=== PATIENT | female | born 1990 | race African-American/Black ===

== ENCOUNTER 2021-06-26 11:11 | Emergency (ER) | payer MEDICARE, MEDICAID, SELFPAY ==
[2021-06-26 11:15] VITALS: BP 152/99; PULSE 101; RESP 18; TEMP 37.1; O2SAT 95
[2021-06-26 11:25] VITALS: BP 150/99; PULSE 98; RESP 24; O2SAT 98
--- NOTE | 2021-06-26 11:38 | ED.ALLEREA ---
HPI - Allergic Reaction General Chief complaint: Allergic Reaction Stated complaint: allergic reaction Time Seen by Provider: 06/26/21 11:18 Source: patient History of Present Illness HPI narrative: Patient presents with concern for allergic reaction. She reports she has had difficulties with allergic reaction for approximately 1 month she has had intermittent urticaria diffuse itching. She has an appointment with an spray mixer in a couple months she has been seen by her primary care doctor and has had intermittent steroids takes daily Benadryl and Zyrtec. Today her symptoms were worse as she noted lip swelling and difficulty swallowing which is new for her so she came to the ER for evaluation denies any nausea vomiting or diarrhea she denies any lightheadedness or wheezing. He has not noted any changes to her chronic medications for past couple years her antihistamine have been consistent over the past month. Typically count is on last night but has tolerated this medication in the past. She is unable to identify clear triggering substance for her allergic reaction. Patient denied family history of the same Related Data Allergies Allergy/AdvReac Type Severity Reaction Status Date / Time tramadol AdvReac Hives Verified 06/26/21 11:26 Review of Systems Review of Systems: CONSTITUTIONAL: Denies fever, chills, or sweats. EYES: Denies visual changes, redness, or discharge. ENT: Denies rhinorrhea, congestion, or otalgia. CARDIOVASCULAR: Denies chest pain, palpitations, or edema. RESPIRATORY: Denies dyspnea. GASTROINTESTINAL: Denies abdominal pain, nausea, vomiting, or diarrhea. GENITOURINARY: Denies dysuria or hematuria. SKIN: Denies rash or itching. MUSCULOSKELETAL: Denies back pain, joint pain, or myalgia. NEUROLOGIC: Denies headache, numbness, dizziness, or weakness. PSYCHIATRIC: Denies anxiety or depression. All systems reviewed & are unremarkable except as noted in HPI and below PMFSH Past Medical History Medical History (Updated 06/26/21 @ 12:53 by Paulo Muñoz MD) Anxiety Exam Narrative: GENERAL: Well-appearing, well-nourished, and in no acute distress. HEAD: Normocephalic, atraumatic. EYES: PERRLA and EOMI. ENT: Nares clear, no rhinorrhea or epistaxis. Mucous membranes moist. Mild swelling of the lips no edema in the posterior pharynx NECK: Supple. No masses. No JVD CHEST: Clear to auscultation. No respiratory distress. No wheezes rales or rhonchi HEART: Regular rate and rhythm. No murmur heard. Normal peripheral pulses. ABDOMEN: Soft, nontender, nondistended, normal active bowel sounds. EXTREMITIES: Normal range of motion. No edema. SKIN: Warm, dry, no rash. NEURO: No focal deficits. Alert and oriented x3. PSYCH: Normal mood and affect. Course Reevaluation(s) Reevaluation #1: Patient was feeling much improved she feels like she can manage her symptoms at home now. Date: 06/26/21 Time: 12:48 Vital Signs Vital signs: Vital Signs Temperature 37.1 C 06/26/21 11:15 Pulse Rate 101 H 06/26/21 11:15 Respiratory Rate 18 06/26/21 11:15 Blood Pressure 152/99 H 06/26/21 11:15 Pulse Oximetry 95 06/26/21 11:15 Temperature 37.1 C 06/26/21 11:15 Pulse Rate 88 06/26/21 13:15 Respiratory Rate 14 06/26/21 13:15 Blood Pressure 128/78 06/26/21 13:15 Pulse Oximetry 99 06/26/21 13:15 MDM - Allergic Reaction MDM Narrative Medical decision making narrative: H&P as above, vss, pt looks clinically well, exam with clear lungs, labs/img considered, symptomatic relief available as needed, on reevaluation pt continues to looks clinically well. Suspect allergic reaction unclear cause, dns airway compromise, severe sepsis, pneumonia. plan to tx/monitor as op w/ pcm f/u findings/plan discussed with pt, pt agree/comfortable with plan, return precautions given Discharge Plan Discharge Clinical Impression: Allergic reaction Qualifiers: Encounter type: initial encounter Qualified Code(s): T78.
[2021-06-26] MEDS: EPINEPHrine HCL INJ 1 MG/ML AMPUL 0.3 MG IM (11:41)
[2021-06-26] MEDS: diphenhydrAMINE HCl INJ 50 MG/ML VIAL 25 MG IV PUSH (11:46)
[2021-06-26] MEDS: methylPREDNISolone SOD SUCC 125 MG VIAL IV PUSH (11:46)
[2021-06-26 12:51] VITALS: BP 129/79; PULSE 81; RESP 16; O2SAT 99
[2021-06-26 13:15] VITALS: BP 128/78; PULSE 88; RESP 14; O2SAT 99
== END 2021-06-26 13:16 | disposition home or self-care (01) ==
PROVIDERS: Emergency Provider Emergency Medicine
DX: T78.40XA Allergy, unspecified, initial encounter (principal)
CPT/HCPCS: 96372; 96374; 96375; 99284; J0171; J1200; J2930

== ENCOUNTER 2021-07-04 19:06 | Emergency (ER) | payer MEDICARE, MEDICAID, SELFPAY ==
[2021-07-04 19:11] VITALS: BP 153/102; PULSE 88; RESP 21; TEMP 36.8; O2SAT 98
--- NOTE | 2021-07-04 19:16 | ED.ALLEREA ---
HPI - Allergic Reaction General Chief complaint: Allergic Reaction Stated complaint: allergic reaction, lip swelling Time Seen by Provider: 07/04/21 19:14 History of Present Illness HPI narrative: 31-year-old female presents the emergency room for evaluation of a cute onset of upper lip swelling. Patient states that she used her EpiPen when she noticed her lip swelling. States EpiPen did not alleviate her symptoms. Patient denies shortness of breath, difficulty breathing. Related Data Allergies Allergy/AdvReac Type Severity Reaction Status Date / Time tramadol AdvReac Hives Verified 07/04/21 19:18 Review of Systems Review of Systems: CONSTITUTIONAL: Denies fever, chills, or sweats. EYES: Denies visual changes, redness, or discharge. ENT: Denies rhinorrhea, congestion, sore throat, or otalgia. CARDIOVASCULAR: Denies chest pain, palpitations, or edema. RESPIRATORY: Denies cough or dyspnea. GASTROINTESTINAL: Denies abdominal pain, nausea, vomiting, or diarrhea. GENITOURINARY: Denies dysuria or hematuria. SKIN: Upper lip swelling, urticaria to neck and back MUSCULOSKELETAL: Denies back pain, joint pain, or myalgia. NEUROLOGIC: Denies headache, numbness, dizziness, or weakness. PSYCHIATRIC: Denies anxiety or depression. [facility] Past Medical History Medical History Anxiety Exam Narrative: GENERAL: Well-appearing, well-nourished, and in no acute distress. HEAD: Normocephalic, atraumatic. EYES: PERRLA and EOMI. CHEST: Clear to auscultation. No respiratory distress. No wheezes rales or rhonchi HEART: Regular rate and rhythm. No murmur heard. Normal peripheral pulses. ABDOMEN: Soft, nontender, nondistended, normal active bowel sounds. EXTREMITIES: Normal range of motion. No edema. SKIN: Swelling to upper lip, urticaria to neck and back NEURO: No focal deficits. Alert and oriented x3. PSYCH: Normal mood and affect. Course Vital Signs Vital signs: Vital Signs Temperature 36.8 C 07/04/21 19:11 Pulse Rate 88 07/04/21 19:11 Respiratory Rate 21 H 07/04/21 19:11 Blood Pressure 153/102 H 07/04/21 19:11 Pulse Oximetry 98 07/04/21 19:11 Temperature 36.8 C 07/04/21 19:11 Pulse Rate 83 07/04/21 22:13 Respiratory Rate 14 07/04/21 22:13 Blood Pressure 160/100 H 07/04/21 22:13 Pulse Oximetry 99 07/04/21 22:13 MDM - Allergic Reaction MDM Narrative Medical decision making narrative: 31-year-old female presented the emergency room complaints of upper lip swelling, rash on her back, and mild occultly breathing. Patient states that she experienced symptoms earlier in the week, and was given a course of steroids and. Patient states that she used her EpiPen prior to arrival. Patient was given Benadryl and steroids and monitored during ER course, and states that her symptoms began to resolve. Differential Diagnosis Differential diagnosis: Likely allergic reaction Discharge Plan Discharge Clinical Impression: Allergic reaction, Urticaria Patient Disposition: Home, Self-Care Condition: Stable Instructions: Antibiotic Form, Allergies (ED), General Allergic Reaction (ED) Prescriptions: New epinephrine [EpiPen 2-Quinn] 0.3 mg/0.3 mL auto-injector 0.3 mg IM ONCE Qty: 2 RF: 0 prednisone 20 mg tablet 40 mg PO DAILY Qty: 10 RF: 0 No Action methylprednisolone 4 mg tablets,dose pack See Rx Instructions .ROUTE .COMPLEX Qty: 21 RF: 0 epinephrine 0.3 mg/0.3 mL auto-injector 0.3 mg IM Q5-15M PRN (Reason: anaphylaxis) Qty: 2 RF: 0 Follow-up/Referrals: PHYSICIAN NOT ON STAFF,NONSTAFF [Primary Care Provider] - Time of Disposition: 22:03
[2021-07-04 19:20] VITALS: O2SAT 99
[2021-07-04] MEDS: SODIUM CHLORIDE 0.9% IV 1,000 ML 999 ML IV CONT (19:38)
[2021-07-04] MEDS: methylPREDNISolone SOD SUCC 125 MG VIAL IV PUSH (19:39)
[2021-07-04] MEDS: FAMOTIDINE 20 MG/2 ML VIAL IV PUSH (19:49)
[2021-07-04] MEDS: diphenhydrAMINE HCl INJ 50 MG/ML VIAL IV PUSH (19:52)
[2021-07-04 22:13] VITALS: BP 160/100; PULSE 83; RESP 14; O2SAT 99
== END 2021-07-04 22:15 | disposition home or self-care (01) ==
PROVIDERS: Emergency Provider Nurse Practitioner Family
DX: L50.0 Allergic urticaria (principal)
CPT/HCPCS: 96361; 96374; 96375; 99284; J1200; J2930; J7030

== ENCOUNTER 2021-07-10 23:37 | Emergency (ER) | payer MEDICARE, MEDICAID, SELFPAY ==
[2021-07-10 23:40] VITALS: BP 109/93; PULSE 103; RESP 25; TEMP 36.3; O2SAT 100
[2021-07-10 23:47] VITALS: PULSE 87; RESP 17; O2SAT 100
--- NOTE | 2021-07-10 23:47 | ED.ALLEREA ---
HPI - Allergic Reaction General Chief complaint: Allergic Reaction Stated complaint: allergic reaction Time Seen by Provider: 07/10/21 23:41 History of Present Illness HPI narrative: 31-year-old female presents the emergency room for evaluation of allergic reaction. Patient has been seen in the emergency room several times before recently for similar symptoms. Patient states she has not taking any new medications, new detergents no known environmental exposures. Patient has an appointment to see the client delivery manager later this week. Patient was also told to discontinue the prednisone that she was taking. Patient denies any shortness of breath or difficulty. Reports swelling of her lower lip and hives on her arm and face. Related Data Allergies Allergy/AdvReac Type Severity Reaction Status Date / Time shellfish derived Allergy Swelling Verified 07/10/21 23:46 of Lip/Tongue/Throat tramadol AdvReac Hives Verified 07/10/21 23:45 Review of Systems Review of Systems: CONSTITUTIONAL: Denies fever, chills, or sweats. EYES: Denies visual changes, redness, or discharge. ENT: Lower lip swelling CARDIOVASCULAR: Denies chest pain, palpitations, or edema. RESPIRATORY: Denies cough or dyspnea. GASTROINTESTINAL: Denies abdominal pain, nausea, vomiting, or diarrhea. GENITOURINARY: Denies dysuria or hematuria. SKIN: Reports rash on the arm and face MUSCULOSKELETAL: Denies back pain, joint pain, or myalgia. NEUROLOGIC: Denies headache, numbness, dizziness, or weakness. PSYCHIATRIC: Denies anxiety or depression. PMFSH Past Medical History Medical History Anxiety Exam Narrative: GENERAL: Well-appearing, well-nourished, and in no acute distress. HEAD: Normocephalic, atraumatic. Lower lip swelling EYES: PERRLA and EOMI. CHEST: Clear to auscultation. No respiratory distress. No wheezes rales or rhonchi HEART: Regular rate and rhythm. No murmur heard. Normal peripheral pulses. ABDOMEN: Soft, nontender, nondistended, normal active bowel sounds. EXTREMITIES: Normal range of motion. No edema. SKIN: Urticaria to left arm face and back NEURO: No focal deficits. Alert and oriented x3. PSYCH: Normal mood and affect. Course Vital Signs Vital signs: Vital Signs Temperature 36.3 C L 07/10/21 23:40 Pulse Rate 103 H 07/10/21 23:40 Respiratory Rate 25 H 07/10/21 23:40 Blood Pressure 109/93 H 07/10/21 23:40 Pulse Oximetry 100 07/10/21 23:40 Temperature 36.3 C L 07/10/21 23:40 Pulse Rate 83 07/11/21 00:34 Respiratory Rate 25 H 07/11/21 00:34 Blood Pressure 150/99 H 07/11/21 00:34 Pulse Oximetry 99 07/11/21 00:34 MDM - Allergic Reaction MDM Narrative Medical decision making narrative: 31-year-old female presented the emergency room for evaluation of a allergic reaction to an unknown substance. This is her third visit to the emergency room in 2 weeks. Patient has a follow-up with her client delivery manager later this week. Patient initially was complaining of lower lip swelling and urticaria. Patient was given Solu-Medrol and Benadryl in the emergency room, and patient states her symptoms are resolving. Discharge Plan Discharge Clinical Impression: Urticaria Allergic reaction Qualifiers: Encounter type: initial encounter Qualified Code(s): T78.40XA - Allergy, unspecified, initial encounter Patient Disposition: Home, Self-Care Condition: Stable Instructions: Antibiotic Form Additional Instructions: Follow-up with your client delivery manager tomorrow. Prescriptions: No Action methylprednisolone 4 mg tablets,dose pack See Rx Instructions .ROUTE .COMPLEX Qty: 21 RF: 0 epinephrine 0.3 mg/0.3 mL auto-injector 0.3 mg IM Q5-15M PRN (Reason: anaphylaxis) Qty: 2 RF: 0 epinephrine [EpiPen 2-Quinn] 0.3 mg/0.3 mL auto-injector 0.3 mg IM ONCE Qty: 2 RF: 0 prednisone 20 mg tablet 40 mg PO DAILY Qty: 10 RF: 0 Follow-up/Referrals: PHYSICIAN,ON
[2021-07-10] MEDS: methylPREDNISolone SOD SUCC 125 MG VIAL IV PUSH (23:51)
[2021-07-10] MEDS: FAMOTIDINE 20 MG/2 ML VIAL IV PUSH (23:51)
[2021-07-10] MEDS: diphenhydrAMINE HCl INJ 50 MG/ML VIAL 25 MG IV PUSH (23:51)
[2021-07-10] MEDS: SODIUM CHLORIDE 0.9% IV 1,000 ML 999 ML IV CONT (23:51)
[2021-07-11] VITALS: PULSE 82; RESP 22; O2SAT 100
[2021-07-11 00:33] VITALS: PULSE 82; RESP 22; O2SAT 99
[2021-07-11 00:34] VITALS: BP 150/99; PULSE 83; RESP 25; O2SAT 99
--- NOTE | 2021-07-11 00:35 | PC.NURSE ---
Patient states she is no longer itchy and her pain is gone. Patient still has lower lip swelling.
[2021-07-11 01:38] VITALS: BP 140/96; PULSE 82; RESP 21; O2SAT 100
== END 2021-07-11 01:40 | disposition home or self-care (01) ==
PROVIDERS: Emergency Provider Nurse Practitioner Family
DX: L50.0 Allergic urticaria (principal); T78.40XA Allergy, unspecified, initial encounter
CPT/HCPCS: 96361; 96374; 96375; 99284; J1200; J2930; J7030

== ENCOUNTER 2021-09-15 15:47 | Emergency (ER) | payer MEDICARE, MEDICAID, SELFPAY ==
--- NOTE | ~2021-09-15 | US_ITS ---
EXAMINATION: US OB <=14 wk fetus w TV DATE: 09/15/2021 17:15 INDICATION: Left lower quadrant pain during first trimester TECHNIQUE: Real-time pelvic transabdominal and transvaginal ultrasound was performed. COMPARISON: None. FINDINGS: The uterus measures 7.3 x 4.6 x 5.5 cm. There is an intrauterine fluid collection. No feta l pole or yolk sac are identified. The intrauterine fluid collection measures 6 mm , which correlates with an estimated gestational age of 5 weeks and 2 day(s) (+/-) 3 day(s). The right ovary measures 2.5 x 2.2 x 2.1 cm. The left ovary measures 2.7 x 1.8 x 2.9 cm. There is nor mal vascular flow in the ovaries. There is no free fluid in the pelvis. IMPRESSION: 1. Probable intrauterine gestational sac with an estimated gestational age of 5 weeks and 2 day(s) (+ /-) 3 day(s) and an estimated delivery date of 05/16/2022 based on mean sac diameter. Reviewed, dictated and finalized at location F. IMPRESSION: 1. Probable intrauterine gestational sac with an estimated gestational age of 5 weeks and 2 day(s) (+/-) 3 day(s) and an estimated delivery date of 05/16/2022 based on mean sac diameter.
[2021-09-15 15:50] VITALS: BP 129/79; PULSE 102; RESP 20; TEMP 36.6; O2SAT 98
[2021-09-15 17:17] LABS: Basophils Absolute Auto 0.1 K/mm3 (0.0-0.1); Basophils Percent Auto 0.7 % (0.2-1.2); Eosinophils Absolute Auto 0.4 K/mm3 (0-0.3); Eosinophils Percent Auto 4.2 % (0-4.4); Hematocrit 37.1 % (37.0-47.0); Hemoglobin 11.9 g/dL (12.0-15.0); Immature Granulocyte Absolute 0.06 K/mm3 (0.00-0.031); Immature Granulocyte Percent A 0.7 % (0-0.5); Lymphocytes Absolute Auto 2.62 K/mm3 (0.9-3.2); Lymphocytes Percent Auto 28.9 % (18.3-44.2); Mean Corpuscular HGB Conc 32.1 g/dl (32-36); Mean Corpuscular Hemoglobin 29.5 pg (26-34); Mean Corpuscular Volume 92.1 fl (80-100); Mean Platelet Volume 10.1 fl (7.4-10.4); Monocytes Absolute Auto 0.7 K/mm3 (0.1-0.6); Monocytes Percent Auto 7.9 % (2.6-8.5); Neutrophils Absolute Auto 5.2 K/mm3 (1.3-6.7); Neutrophils Percent Auto 57.6 % (45.5-73.1); Platelet Count Result 292 k/mm3 (150-375); Red Blood Count 4.03 M/mm3 (4.2-5.4); Red Cell Distribution Width 13.6 % (11.5-14.5); White Blood Count 9.1 K/mm3 (4.5-10.0)
[2021-09-15] MEDS: LACTATED RINGERS 1,000 ML 999 ML IV CONT (17:17)
[2021-09-15 17:20] VITALS: BP 126/80; PULSE 88; RESP 16; TEMP 36.4; O2SAT 100
[2021-09-15 17:26] LABS: Alanine Aminotransferase 25 U/L (6-35); Albumin Level 4.3 g/dL (3.5-5.1); Alkaline Phosphatase 65 U/L (38-126); Anion Gap 7 mmol/L (8-16); Aspartate Amino Transferase 27 U/L (14-36); Bilirubin,Total < 0.1 mg/dL (0.2-1.3); Blood Urea Nitrogen 11 mg/dL (7-17); Calcium 8.8 mg/dL (8.4-10.2); Carbon Dioxide 26 mmol/L (22-30); Chloride 104 mmol/L (98-107); Estimated Glomerular Filt Rate > 60; Glucose 87 mg/dL (65-110); Potassium 3.7 mmol/L (3.4-5.0); Sodium 137 mmol/L (137-145)
--- NOTE | 2021-09-15 17:53 | ED.FEMALEGU ---
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 Time Seen by Provider: 09/15/21 16:31 Source: patient History of Present Illness HPI Narrative: Patient presents with abdominal pain vaginal bleeding and concern for . Patient reports she had her last menstrual cycle July 23 at home test was positive follow-up with her primary care doctor and it was also positive. She is coming in today because she had approximately 1 week of left-sided abdominal pain. Her pain is primarily left lower quadrant described as crampy radiates to her lower back on the left side worse with walking around. Her symptoms have been associated with vaginal spotting she denies passage of clots. She is monitor symptoms at home it was not getting better so she came to the ER for further evaluation. Denies any lightheadedness or dizziness denies any urinary symptoms she states her blood type is A- Related Data Allergies Allergy/AdvReac Type Severity Reaction Status Date / Time shellfish derived Allergy Swelling Verified 07/10/21 23:46 of Lip/Tongue/Throat tramadol AdvReac Hives Verified 07/10/21 23:45 Review of Systems Review of Systems: CONSTITUTIONAL: Denies fever, chills, or sweats. EYES: Denies visual changes, redness, or discharge. ENT: Denies rhinorrhea, congestion, sore throat, or otalgia. CARDIOVASCULAR: Denies chest pain, palpitations, or edema. RESPIRATORY: Denies cough or dyspnea. GASTROINTESTINAL: Denies nausea, vomiting, or diarrhea. GENITOURINARY: Denies dysuria or hematuria. SKIN: Denies rash or itching. MUSCULOSKELETAL: Denies back pain, joint pain, or myalgia. NEUROLOGIC: Denies headache, numbness, dizziness, or weakness. PSYCHIATRIC: Denies anxiety or depression. All systems reviewed & are unremarkable except as noted in HPI and below PMFSH Past Medical History Medical History Anxiety Social History Social History (Updated 09/15/21 @ 17:55 by Paulo Muñoz MD) Living arrangements: with family Exam Narrative: GENERAL: Well-appearing, well-nourished, and in no acute distress. HEAD: Normocephalic, atraumatic. EYES: PERRLA and EOMI. ENT: Nares clear, no rhinorrhea or epistaxis. Mucous membranes moist. NECK: Supple. No masses. No JVD CHEST: Clear to auscultation. No respiratory distress. No wheezes rales or rhonchi HEART: Regular rate and rhythm. No murmur heard. Normal peripheral pulses. 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 There is scant vaginal bleeding cervical os was closed this given discharge no external ulcerations or lesions no lymphadenopathy EXTREMITIES: Normal range of motion. No edema. SKIN: Warm, dry, no rash. NEURO: No focal deficits. Alert and oriented x3. PSYCH: Normal mood and affect. Course Reevaluation(s) Reevaluation #1: Patient resting comfortably results and plan reviewed with patient. Patient is comfortable outpatient plan. Date: 09/15/21 Time: 17:57 Vital Signs Vital signs: Vital Signs Temperature 36.6 C 09/15/21 15:50 Pulse Rate 102 H 09/15/21 15:50 Respiratory Rate 20 09/15/21 15:50 Blood Pressure 129/79 09/15/21 15:50 Pulse Oximetry 98 09/15/21 15:50 Oxygen Delivery Room Air 09/15/21 15:50 Temperature 36.7 C 09/15/21 18:25 Pulse Rate 82 09/15/21 18:25 Respiratory Rate 18 09/15/21 18:25 Blood Pressure 126/70 09/15/21 18:25 Pulse Oximetry 98 09/15/21 18:25 Oxygen Delivery Room Air 09/15/21 15:50 MDM - Female Genitourinary MDM Narrative Medical decision making narrative: H&P as above, vss, pt looks clinically well, exam left lower quadrant abdominal pain scant vaginal bleeding on exam, labs with elevated hCG patient's Rh status negative RhoGAM given img with viable IUP, additional labs/img considered, symptomatic re
[2021-09-15 18:01] LABS: Appearance Urine Clear (Clear); Bilirubin Urine Negative (Negative); Blood Urine Trace-lysed (Negative); Glucose Urine UA Negative (Negative); Ketones Urine Negative (Negative); Leukocyte Esterase Ur 1+ LEU/UL (Negative); Nitrate Urine Negative (Negative); Protein Urine Negative (Negative); Specific Grav Ur <= 1.005 (1.001-1.035); Urobilinogen Urine 0.2 mg/dL (<2.0); pH Urine 6.5 (5.0-9.0)
[2021-09-15 18:08] LABS: Bacteria Urine Trace /hpf; RBC Urine 0-2 /hpf (0-2)
[2021-09-15 18:09] LABS: Add Urine Microscopic? YES; Color Urine Light Yellow (Yellow)
[2021-09-15] MEDS: RHO(D) IMMUNE GLOBULIN 300 MCG/2 ML SYRINGE IM (18:20)
[2021-09-15 18:25] VITALS: BP 126/70; PULSE 82; RESP 18; TEMP 36.7; O2SAT 98
== END 2021-09-15 18:26 | disposition home or self-care (01) ==
PROVIDERS: Emergency Provider Emergency Medicine
DX: O20.0 Threatened abortion (principal); Z3A.01 Less than 8 weeks gestation of pregnancy
CPT/HCPCS: 36415; 76801; 76817; 80053; 81001; 84702; 85025; 85461; 87070; 87491; 87591; 87808; 90384; 96360; 96372; 99284; J2790; J7120

== ENCOUNTER 2021-09-18 09:31 | Emergency (ER) | payer MEDICARE, MEDICAID, SELFPAY ==
[2021-09-18 09:33] VITALS: BP 147/87; PULSE 104; RESP 16; TEMP 36.6; O2SAT 100
--- NOTE | 2021-09-18 09:58 | ED.FEMALEGU ---
HPI - Female Genitourinary General Chief complaint: Vaginal Bleeding Stated complaint: VAG BLEED 5WK PREG Time Seen by Provider: 09/18/21 09:41 History of Present Illness HPI Narrative: Patient is a 31-year-old female who is currently about 5 weeks here for evaluation of vaginal bleeding for the past 5 days. Patient states the bleeding started out as a spotting, and now has progressed to small blood clots. Additionally reporting some crampy abdominal pain, nausea and low back pain that is intermittent, unrelieved by Tylenol. She was seen here for the same 2 days ago, had an ultrasound that showed IUP, was given OB follow-up but patient states that her appointment is not till the end of September. Was also given RhoGAM as she is A-. No fevers, chills, vomiting, diarrhea, constipation. Related Data Home Medications Medication Instructions Recorded Confirmed famotidine 20 mg tablet tablet 09/18/21 09/18/21 fluoxetine 20 mg capsule cap 09/18/21 Allergies Allergy/AdvReac Type Severity Reaction Status Date / Time nut - unspecified Allergy Swelling Verified 09/18/21 09:43 of Lip/Tongue/Throat shellfish derived Allergy Swelling Verified 09/18/21 09:43 of Lip/Tongue/Throat tramadol AdvReac Hives Verified 09/18/21 09:43 Review of Systems Review of Systems: Gen.: Denies fevers or chills Eyes: Denies eye pain or visual change ENT: Denies congestion Respiratory: Denies shortness of breath or cough CV: Denies chest pain or palpitations GI: Reports abdominal cramping and nausea. Denies abdominal pain, emesis or diarrhea : Reports vaginal bleeding. Denies burning, urgency, frequency or hematuria Musculoskeletal: Denies back pain or muscle pain Neuro: Denies numbness, tingling, weakness or focal weakness Skin: Denies rash Except as documented, all other systems reviewed and negative [facility] Past Medical History Medical History Anxiety Exam Narrative: APPEARANCE: No acute distress, nontoxic, resting in bed EYES: EOMI HEENT: Normocephalic, atraumatic, OMM RESPIRATORY: No respiratory distress Clear to auscultation bilaterally with no rhonchi wheezing or rales. CARDIOVASCULAR: Regular rate and rhythm without murmurs rubs or gallops. ABDOMINAL: Soft, nontender, nondistended, no rebound or guarding MUSCULOSKELETAl: Moves all extremities. No clubbing, cyanosis or edema. 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 Scant amount of dark red blood noted in vaginal vault, no clots. Thick vaginal rugae obscure view of cervix NEURO: Awake and alert. Following commands, speech normal, no focal deficits SKIN: Warm, dry. No rashes lesions or abrasions PSYCHIATRIC: Normal affect/mood, Course Vital Signs Vital signs: Vital Signs Temperature 97.9 F 09/18/21 09:33 Pulse Rate 104 H 09/18/21 09:33 Respiratory Rate 16 09/18/21 09:33 Blood Pressure 147/87 H 09/18/21 09:33 Pulse Oximetry 100 09/18/21 09:33 Oxygen Delivery Room Air 09/18/21 09:33 Temperature 97.9 F 09/18/21 09:33 Pulse Rate 88 09/18/21 12:58 Respiratory Rate 14 09/18/21 12:58 Blood Pressure 132/86 09/18/21 12:58 Pulse Oximetry 97 09/18/21 12:58 Oxygen Delivery Room Air 09/18/21 09:33 MDM - Female Genitourinary MDM Narrative Medical decision making narrative: 31-year-old female who is currently about 5 weeks here for evaluation of vaginal bleeding and abdominal cramping. Patient had dose of RhoGAM and an ultrasound showing IUP 2 days prior in the ED. Her quant has decreased since that time. Vaginal rugae obscuring view of cervical os, although there is no active bleeding and no clots visualized. Hemoglobin and hematocrit stable. Likely miscarriage; doubt ectopic given previously visualized IUP, doubt septic AB given normal white count and normal vital signs. Spoke with Dr. Richardson, BATTERY PARTS ASSEMBLER on-call, who will follow in office with
[2021-09-18 10:24] LABS: Basophils Percent Auto 0.5 % (0.2-1.2); Eosinophils Absolute Auto 0.3 K/mm3 (0-0.3); Eosinophils Percent Auto 4.2 % (0-4.4); Hematocrit 34.8 % (37.0-47.0); Hemoglobin 11.6 g/dL (12.0-15.0); Immature Granulocyte Absolute 0.03 K/mm3 (0.00-0.031); Immature Granulocyte Percent A 0.5 % (0-0.5); Lymphocytes Absolute Auto 1.84 K/mm3 (0.9-3.2); Lymphocytes Percent Auto 27.8 % (18.3-44.2); Mean Corpuscular HGB Conc 33.3 g/dl (32-36); Mean Corpuscular Volume 89.9 fl (80-100); Mean Platelet Volume 10.8 fl (7.4-10.4); Monocytes Absolute Auto 0.4 K/mm3 (0.1-0.6); Monocytes Percent Auto 6.3 % (2.6-8.5); Neutrophils Percent Auto 60.7 % (45.5-73.1); Platelet Count Result 290 k/mm3 (150-375); Red Blood Count 3.87 M/mm3 (4.2-5.4); Red Cell Distribution Width 13.6 % (11.5-14.5); White Blood Count 6.6 K/mm3 (4.5-10.0)
[2021-09-18] MEDS: ACETAMINOPHEN 325 MG TABLET 650 MG PO (10:24)
[2021-09-18 12:04] LABS: Appearance Urine Clear (Clear); Bilirubin Urine 1+ (Negative); Blood Urine 2+ (Negative); Color Urine Yellow (Yellow); Glucose Urine UA Negative (Negative); Ketones Urine Negative (Negative); Leukocyte Esterase Ur Trace LEU/UL (Negative); Nitrate Urine Negative (Negative); Protein Urine Negative (Negative); Urobilinogen Urine 0.2 mg/dL (<2.0)
[2021-09-18 12:07] LABS: Mucus Urine Few /lpf; Squamous Epithelial Cell Urine Occasional /hpf (Few)
[2021-09-18 12:15] LABS: Add Urine Microscopic? YES
[2021-09-18 12:58] VITALS: BP 132/86; PULSE 88; RESP 14; O2SAT 97
== END 2021-09-18 12:58 | disposition home or self-care (01) ==
PROVIDERS: Physician Assistant; Emergency Provider Emergency Medicine
DX: O20.0 Threatened abortion (principal); O99.341 Other mental disorders complicating pregnancy, first trimester; F41.9 Anxiety disorder, unspecified; Z3A.01 Less than 8 weeks gestation of pregnancy
CPT/HCPCS: 36415; 81001; 84702; 85025; 99283; A9270

== ENCOUNTER 2022-02-10 21:51 | Emergency (ER) | payer MEDICARE, MEDICAID, SELFPAY ==
--- NOTE | ~2022-02-10 | XR_ITS ---
XR chest 1V portable DATE: 02/11/2022 01:35 INDICATION: Cough, wheezing TECHNIQUE: Portable upright AP chest on 02/11/2022 at 0132 hours COMPARISON: None FINDINGS: Normal heart size. No hilar or mediastinal enlargement. No pulmonary infiltrate or consolid ation, pleural effusion or pulmonary vascular congestion or pneumothorax. Included skeletal structures are unremarkable. IMPRESSION: No active cardiopulmonary disease Reviewed, dictated and finalized at location A. FOLIO MANAGER
[2022-02-10 22:02] VITALS: BP 137/97; PULSE 92; RESP 18; TEMP 36.4; O2SAT 97
[2022-02-10 22:50] LABS: Influenza A QL RT-PCR Negative (Negative); Influenza B QL RT-PCR Negative (Negative); RSV RNA, RT-PCR Negative (Negative); SARS-CoV-2 RNA PCR Negative
--- NOTE | 2022-02-11 01:27 | ED.URI ---
HPI - URI/Sore Throat General Chief Complaint: Upper Respiratory Infection Stated Complaint: upper respiratory issue Time Seen by Provider: 02/11/22 01:10 Source: patient Mode of arrival: ambulatory Limitations: no limitations History of Present Illness HPI Narrative: This is a 31 year old female that presents to the ER for cold symptoms ongoing over the last couple of days. Reports cough, congestion, rhinorrhea. Reports similar symptoms in her child. Reports she has felt tightness and wheezing in her chest. She has history of asthma, but does not currently have an inhaler. Denies fever. Related Data Home Medications Medication Instructions Recorded Confirmed famotidine 20 mg tablet tablet 09/18/21 09/18/21 fluoxetine 20 mg capsule cap 09/18/21 Allergies Allergy/AdvReac Type Severity Reaction Status Date / Time nut - unspecified Allergy Swelling Verified 02/10/22 21:52 of Lip/Tongue/Throat shellfish derived Allergy Swelling Verified 02/10/22 21:52 of Lip/Tongue/Throat tramadol AdvReac Hives Verified 02/10/22 21:52 Review of Systems Review of Systems: CONSTITUTIONAL: Denies fever ENT: Reports rhinorrhea, congestion CARDIOVASCULAR: Reports chest pain with coughing RESPIRATORY: Reports cough and dyspnea. All systems reviewed & are unremarkable except as noted in HPI and below PMFSH Past Medical History Medical History (Updated 02/11/22 @ 02:40 by Kelly Jones PA-C) Anxiety History of asthma Social History Social History (Updated 02/11/22 @ 01:29 by Kelly Jones PA-C) Smoking status: Never smoker Exam Narrative: GENERAL: Well-appearing, well-nourished, and in no acute distress. HEAD: Normocephalic, atraumatic. EYES: EOMI. ENT: Nares clear, no rhinorrhea or epistaxis. Mucous membranes moist. Oropharynx without tonsillar hypertrophy exudate or other lesions. Bilateral TMs pearly aviles non-bulging NECK: Supple. No adenopathy or masses. CHEST: Diminished lung sounds with expiratory wheezing. No respiratory distress. No rales or rhonchi HEART: Regular rate and rhythm. No murmur heard. Normal peripheral pulses EXTREMITIES: Normal range of motion. No edema. SKIN: Warm, dry, no rash. NEURO: No focal deficits. Alert and oriented x3. PSYCH: Normal mood and affect Course Vital Signs Vital signs: Vital Signs Temperature 97.5 F L 02/10/22 22:02 Pulse Rate 92 02/10/22 22:02 Respiratory Rate 18 02/10/22 22:02 Blood Pressure 137/97 H 02/10/22 22:02 Pulse Oximetry 97 02/10/22 22:02 Oxygen Delivery Room Air 02/10/22 22:02 Temperature 97.5 F L 02/10/22 22:02 Pulse Rate 92 02/10/22 22:02 Respiratory Rate 18 02/10/22 22:02 Blood Pressure 137/97 H 02/10/22 22:02 Pulse Oximetry 97 02/10/22 22:02 Oxygen Delivery Room Air 02/10/22 22:02 MDM - URI/Sore Throat MDM Narrative Medical decision making narrative: Patient presents to the ER for cold symptoms present over the last couple of days. Associated with asthma exacerbation. Patient with diminished lung sounds and expiratory wheezing on arrival. This improved with nebulizer treatment. Patient reports relief. Chest x-ray without acute cardiopulmonary abnormality. Oxygen saturation has remained normal on room air. She will be continued on oral steroid and given prescription for albuterol inhaler. She was given warnings to return to the ER Lab Data Attestation: I reviewed the patient's lab results. Labs: Lab Results 02/10/22 Range/Units 22:08 Influenza A (RT-PCR) Negative (Negative) Influenza B (RT-PCR) Negative (Negative) RSV (RT-PCR) Negative (Negative) SARS-CoV-2 RNA (RT-PCR) Negative Critical Care Time Critical Care Time Critical Care Time: No Discharge Plan Discharge Clinical Impression: Acute viral syndrome Asthma exacerbation Qualifiers: Asthma severity: unspecified severity Asthma persistence: intermittent Qualified Code(s): J45.21 - Mild inter
[2022-02-11] MEDS: predniSONE 20 MG TABLET 40 MG PO (01:32)
[2022-02-11] MEDS: ALBUTEROL SULFATE NEB 2.5 MG/3 ML INH 5 MG INHALATION (01:55)
[2022-02-11] MEDS: IPRATROPIUM BR 0.02% INH SOLN 0.5 MG/2.5 ML VIAL INHALATION (01:55)
== END 2022-02-11 02:50 | disposition home or self-care (01) ==
PROVIDERS: Emergency Medicine; Emergency Provider Physician Assistant
DX: B34.9 Viral infection, unspecified (principal); J45.21 Mild intermittent asthma with (acute) exacerbation; Z20.822 Contact with and (suspected) exposure to COVID-19; J45.909 Unspecified asthma, uncomplicated; F41.9 Anxiety disorder, unspecified
CPT/HCPCS: 71045; 87637; 99283; J7512

== ENCOUNTER 2022-03-10 09:28 | Emergency (ER) | payer MEDICARE, MEDICAID, SELFPAY ==
--- NOTE | 2022-03-10 09:39 | ED.URI ---
HPI - URI/Sore Throat General Chief Complaint: Upper Respiratory Infection Stated Complaint: swollen lymph node; nausea; diarrhea Source: patient and RN notes reviewed Mode of arrival: ambulatory Limitations: no limitations History of Present Illness HPI Narrative: 31-year-old female presents concern for sore throat, swollen glands, diarrhea for 2 days. She reports she has taken [id number] medications relief. She denies fever, aches, chills, sweats cough MD elicited complaint: sore throat Related Data Home Medications Medication Instructions Recorded Confirmed fluoxetine 20 mg capsule 3 cap PO DAILY 09/18/21 03/10/22 Allergies Allergy/AdvReac Type Severity Reaction Status Date / Time nut - unspecified Allergy Swelling Verified 03/10/22 09:32 of Lip/Tongue/Throat shellfish derived Allergy Swelling Verified 03/10/22 09:32 of Lip/Tongue/Throat tramadol AdvReac Hives Verified 03/10/22 09:32 Review of Systems Review of Systems: CONSTITUTIONAL: Denies malaise, chills, sweats, or fever. EYES: Denies visual changes, redness, or discharge. ENT: Reports rhinorrhea, sore throat, swollen glands. Denies congestion, sinus pain, otalgia CARDIOVASCULAR: Denies chest pain, palpitations, or edema. RESPIRATORY: Denies cough. Denies dyspnea. GASTROINTESTINAL: Denies abdominal pain, nausea, vomiting. Reports diarrhea SKIN: Denies rash or itching. MUSCULOSKELETAL: Denies myalgia. NEUROLOGIC: Denies headache. All systems reviewed & are unremarkable except as noted in HPI and below PMFSH Past Medical History Medical History (Updated 03/10/22 @ 09:59 by Amanda Bryson NP) Anxiety History of asthma Social History Social History (Updated 02/11/22 @ 01:29 by Kelly Jones PA-C) Smoking status: Never smoker Comments At time of signature, agree with nursing past medical, surgical, social and family history. There is no relevant family history pertinent to the presenting complaint Exam Narrative: GENERAL: Well-appearing, well-nourished, and in no acute distress. HEAD: Normocephalic EYES: PERRLA, conjunctivae clear ENT: Nares clear, clear discharge. Mucous membranes moist. TM pearly aviles with dull light reflex bilaterally; no tragal tenderness. Oropharynx erythematous without lesions. Tonsils enlarged with exudate, no drooling, no hoarseness, no trismus, uvula midline. NECK: Supple. No lymphadenopathy CHEST: Clear to auscultation, breath sounds equal. No wheezing, rhonchi, rales, or stridor. No respiratory distress, speaks in full sentences. HEART: Regular rate and rhythm. No murmur heard. SKIN: Warm, dry, no rash. NEURO: Alert and oriented x3. PSYCH: Normal mood and affect Course Course Emergency Course: Patient is aware of diagnosis, understands and agrees to treatment plan. Anticipatory guidance given. Patient agrees to follow-up as directed and is aware of reasons to seek care at the emergency department. Portions of this record may have been created with voice recognition software Level of Care: Express Care Visit Vital Signs Vital signs: Vital Signs Temperature 98.2 F 03/10/22 09:43 Pulse Rate 97 03/10/22 09:43 Respiratory Rate 20 03/10/22 09:43 Blood Pressure 139/100 H 03/10/22 09:43 Pulse Oximetry 99 03/10/22 09:43 Oxygen Delivery Room Air 03/10/22 09:43 Temperature 98.2 F 03/10/22 09:43 Pulse Rate 97 03/10/22 09:43 Respiratory Rate 20 03/10/22 09:43 Blood Pressure 139/100 H 03/10/22 09:43 Pulse Oximetry 99 03/10/22 09:43 Oxygen Delivery Room Air 03/10/22 09:43 Reviewed. MDM - URI/Sore Throat MDM Narrative Medical decision making narrative: Differential diagnosis considered: Can virus, strep pharyngitis, allergic rhinitis, upper respiratory tract infection, sinusitis, rhinosinusitis, nasopharyngitis. viral pharyngitis, otitis media, otitis externa, pneumonia, bronchitis, viral cough syndrome, viral syndrome, and influenza.
[2022-03-10 09:43] VITALS: BP 139/100; PULSE 97; RESP 20; TEMP 36.8; O2SAT 99
== END 2022-03-10 10:15 | disposition home or self-care (01) ==
PROVIDERS: Emergency Provider Nurse Practitioner
DX: J03.90 Acute tonsillitis, unspecified (principal); Z20.822 Contact with and (suspected) exposure to COVID-19; F41.9 Anxiety disorder, unspecified; J45.909 Unspecified asthma, uncomplicated
CPT/HCPCS: 87081; 87426; 87804; 99213; C9803; G0463

== ENCOUNTER 2022-06-19 12:23 | Outpatient (CLI) | payer MEDICARE, MEDICAID, SELFPAY ==
--- NOTE | ~2022-06-19 | US_ITS ---
EXAMINATION: US pelvic complete w TV DATE: 06/19/2022 13:10 INDICATION: Abnormal uterine bleeding TECHNIQUE: Multiple transabdominal and endovaginal sonographic images of the pelvis were obtained. COMPARISON: None. FINDINGS: The uterus measures 7.6 x 5.4 x 3.8 cm. A nabothian cyst is noted in the cervix. There is s uggestion of a partial septate uterus. The endometrial complex measures 7 mm. The right ovary measure s 1.8 x 1.7 x 2.2 cm. The left ovary measures 2.1 x 1.7 x 1.8 cm. There is normal vascular flow in th e ovaries. There is no free fluid in the pelvis. IMPRESSION: 1. No sonographic correlate for the patient's symptoms. 2. Possible partial septate uterus Reviewed, dictated and finalized at location B.
== END 2022-06-19 12:24 | disposition home or self-care (01) ==
LOC: ANHIMG 12:25
PROVIDERS: Visit Provider Physician Assistant
DX: N93.9 Abnormal uterine and vaginal bleeding, unspecified (principal)
CPT/HCPCS: 76830; 76856

== ENCOUNTER 2022-12-22 09:16 | Emergency (ER) | payer OTHER, SELFPAY ==
--- NOTE | 2022-12-22 09:17 | ED.EYEPROB ---
HPI - Eye Problem General Chief complaint: Eye Problems Stated complaint: Left Eye Irritation Time Seen by Provider: 12/22/22 09:17 Source: patient Mode of arrival: ambulatory Limitations: no limitations History of Present Illness HPI Narrative: Patient is a 32-year-old female who presents with left eye irritation that started last night. Denies any contacts with rina. Reports her eye feels like there are sticks in it it is swollen and was matted shut this morning. Denies any vision loss, pain or blurred vision. Related Data Home Medications Medication Instructions Recorded Confirmed fluoxetine 20 mg capsule 3 cap PO DAILY 09/18/21 12/22/22 famotidine 20 mg tablet 20 mg PO DAILY 12/22/22 12/22/22 metformin 500 mg tablet 500 mg PO DAILY 12/22/22 12/22/22 paliperidone palmitate 117 mg/0.75 See Rx Instructions .Route .COMPLEX 12/22/22 12/22/22 mL intramuscular syringe (Invega Sustenna) vilazodone 20 mg tablet (Viibryd) See Rx Instructions .Route .COMPLEX 12/22/22 12/22/22 Allergies Allergy/AdvReac Type Severity Reaction Status Date / Time nut - unspecified Allergy Swelling Verified 12/22/22 09:23 of Lip/Tongue/Throat shellfish derived Allergy Swelling Verified 12/22/22 09:23 of Lip/Tongue/Throat tramadol AdvReac Hives Verified 12/22/22 09:23 Review of Systems Review of Systems: All systems reviewed & are unremarkable except as noted in HPI and below Constitutional: Constitutional: Denies body ache(s), Denies fever(s), Denies headache(s), Denies malaise and Denies weakness Eyes: Eyes: Denies blurry vision, Reports eye discharge, Reports irritation, Reports itchy eyes, Denies loss of vision and Denies eye pain ENT: Denies otalgia, Denies headache(s), Denies nasal discharge, Denies sinus pain and Denies sore throat Cardiovascular: Cardiovascular: Denies chest pain, Denies irregular heart rhythm and Denies dyspnea Respiratory: Respiratory: Denies dyspnea Gastrointestinal: Gastrointestinal: Denies abdominal pain, Denies diarrhea, Denies nausea and Denies vomiting Musculoskeletal: Musculoskeletal: Denies back pain, Denies myalgias and Denies arthralgias Integumentary/Breasts: Skin/Breast: Denies pruritus and Denies rash Neurologic: Denies headache(s), Denies loss of vision and Denies weakness Psychiatric: Psychiatric: Reports no additional psychiatric complaints Allergic/Immunologic: Allergic/Immunologic: Reports itchy eyes PMFSH Past Medical History Medical History Anxiety History of asthma Social History Social History Smoking status: Never smoker Living arrangements: with family Comments At time of signature, agree with nursing past medical, surgical, social and family history. There is no relevant family history pertinent to the presenting complaint. Exam Const: General: cooperative, healthy appearing, comfortable, no acute distress and well nourished Nutritional Appearance: well nourished Orientation/consciousness: patient oriented x3 Limitations: no limitations HENMT: Head: normal to inspection, normocephalic and atraumatic Ears: external ears normal Face/Nose/Sinus: Normal external nose present, normal facial exam and face symmetric Face and sinus: normal facial exam and face symmetric Mouth: Yes lip normal Eyes: General: appearance normal, both eyes and all related structures Visual Morfin: normal visual morfin by confrontation Alignment and Position: alignment normal and position normal Periorbital: periorbital findings normal Eyelids: eyelid abnormality left upper eyelid swelling Conjunctivae: conjunctival abnormality left conjunctival injection diffuse and discharge mucoid Sclera: scleral abnormality left scleral injection diffuse Pupils: Equal, round and reactive pupils present EOM: EOMs intact bilaterally Direct Ophthalmoscopy: no photoph
[2022-12-22 09:29] VITALS: BP 144/99; PULSE 104; RESP 16; TEMP 36.8; O2SAT 99
== END 2022-12-22 10:11 | disposition home or self-care (01) ==
PROVIDERS: Emergency Provider Nurse Practitioner Family; PCP Registered Nurse
DX: H10.32 Unspecified acute conjunctivitis, left eye (principal); J45.909 Unspecified asthma, uncomplicated; F41.9 Anxiety disorder, unspecified
CPT/HCPCS: 99213; G0463

== ENCOUNTER 2023-01-11 10:41 | Outpatient (CLI) | payer OTHER, SELFPAY ==
--- NOTE | ~2023-01-11 | US_ITS ---
EXAMINATION: US pelvic complete w TV DATE: 01/11/2023 11:46 INDICATION: Irregular periods. Comparison:No prior studies for comparison. TECHNIQUE: Multiple transabdominal and endovaginal sonographic images of the pelvis performed. FINDINGS: The uterus measures 6.1 x 3 x 4.6 cm. The endometrial complex measures 2.7 mm. The right ovary measures 2.4 x 1.8 x 1.5 cm and the left ovary measures 2.7 x 1.4 x 1.7 cm. There ar e small follicles in each ovary. Normal doppler signal in both ovaries. There is no free fluid in the pelvis. There are no abnormal masses seen on either side. IMPRESSION: 1. Unremarkable pelvic ultrasound. Reviewed, dictated and finalized at location L.
== END 2023-01-11 10:42 | disposition home or self-care (01) ==
PROVIDERS: PCP Registered Nurse; Visit Provider Physician Assistant
DX: N92.6 Irregular menstruation, unspecified (principal)
CPT/HCPCS: 76830; 76856

== ENCOUNTER 2023-02-21 09:32 | Outpatient (CLI) | payer OTHER, SELFPAY ==
--- NOTE | ~2023-02-21 | MR_ITS ---
EXAMINATION: MR pituitary wo/w con DATE: 02/21/2023 10:34 INDICATION: Elevated prolactin level TECHNIQUE: Magnetic resonance imaging (MRI) of the brain and brainstem was performed without and with 20 mL Multihance intravenous contrast. Whole-brain sequences included sagittal T1-weighted FSE, axia l diffusion-weighted FS EPI, axial 3D SWAN, axial T2-weighted FLAIR Propeller, and axial T2-weighted Propeller. Small yding-ir-ehow sequences included sagittal and coronal T1-weighted FSE centered at th e pituitary. Postcontrast sequences included small [id number] coronal T1-weighted FSE in a time c ourse and sagittal T1-weighted FSE and whole-brain axial T1-weighted FSE. Apparent diffusion coeffici ent (ADC) maps were created. COMPARISON: None. FINDINGS: There are no areas of restricted diffusion to suggest acute infarction. No intracranial hemorrhage. T here is a 3 x 2 x 2 mm hypoenhancing lesion in the anterior pituitary slightly to the left of midline consistent with a microadenoma. The pituitary remains within the sella with a concave cephalad tomasz n. The optic chiasm and suprasellar cistern are unremarkable. Normal midline infundibular stalk. Ther e are no intraparenchymal signal abnormalities seen on the other pulse sequences. There are no other abnormally enhancing brain lesions. The ventricles are symmetric and normal in size. There are no abn ormal extra-axial fluid collections. Flow voids are seen in the cerebral arteries on the T2-weighted sequences consistent with their expected patency. The callosal thickening the bilateral ethmoid sinus es with fluid versus mucous retention cyst filling the left maxillary sinus. Visualized orbits and so ft tissues are unremarkable. IMPRESSION: 1. 3 x 2 x 2 mm hypoenhancing likely pituitary adenoma in the anterior pituitary. Reviewed, dictated and finalized at location A. [employer] IMPRESSION: 1. 3 x 2 x 2 mm hypoenhancing likely pituitary adenoma in the anterior pituitar y.
== END 2023-02-21 09:33 | disposition home or self-care (01) ==
PROVIDERS: PCP Registered Nurse; Visit Provider Physician Assistant
DX: E22.1 Hyperprolactinemia (principal)
CPT/HCPCS: 70553; A9577

== ENCOUNTER 2023-11-07 08:23 | Outpatient (CLI) | payer OTHER, SELFPAY ==
--- NOTE | 2023-11-07 11:20 | NEURO_ITS ---
Impression: # Complains of numbness of hands. Non-diabetic with history of Carpal Tunnel Release. # Mild right sensory Carpal Tunnel Syndrome. # Normal needle/EMG exam. # Clinical correlation recommended. Nerve Conduction Studies Anti Sensory Summary Table Stim Site NR Peak (ms) P-T Amp (?V) Site1 Site2 Delta-P (ms) Dist (cm) Jorge (m/s) Left Median Anti Sensory (2-3nd Digit) Wrist 2.9 79.2 Wrist 2-3nd Digit 2.9 14.0 48 Wrist 2.8 71.6 Wrist 2-3nd Digit 2.9 14.0 48 Right Median Anti Sensory (2-3nd Digit) Wrist 3.4 64.1 Wrist 2-3nd Digit 3.4 14.0 41 Wrist 3.5 40.5 Wrist 2-3nd Digit 3.4 14.0 41 Left Radial Anti Sensory (Base 1st Digit) Wrist 2.0 26.0 Wrist Base 1st Digit 2.0 0.0 Right Radial Anti Sensory (Base 1st Digit) Wrist 2.4 11.1 Wrist Base 1st Digit 2.4 0.0 Left Ulnar Anti Sensory (5th Digit) Wrist 2.2 38.3 Wrist 5th Digit 2.2 14.0 64 Right Ulnar Anti Sensory (5th Digit) Wrist 2.2 43.3 Wrist 5th Digit 2.2 14.0 64 Motor Summary Table Stim Site NR Onset (ms) O-P Amp (mV) Site1 Site2 Delta-0 (ms) Dist (cm) Jorge (m/s) Left Median Motor (Abd Poll Brev) Wrist 3.0 7.7 Elbow Wrist 5.0 28.0 56 Elbow 8.0 4.9 Right Median Motor (Abd Poll Brev) Wrist 3.3 5.7 Elbow Wrist 5.3 29.0 55 Elbow 8.6 3.4 Left Ulnar Motor (Abd Dig Minimi) Wrist 2.6 6.2 A Elbow Wrist 5.2 29.0 56 A Elbow 7.8 5.1 Right Ulnar Motor (Abd Dig Minimi) Wrist 2.5 5.8 A Elbow Wrist 5.0 28.0 56 A Elbow 7.5 3.6 F Wave Studies NR F-Lat (ms) L-R F-Lat (ms) Left Median (Mrkrs) (Abd Poll Brev) 27.42 1.29 Right Median (Mrkrs) (Abd Poll Brev) 28.71 1.29 Left Ulnar (Mrkrs) (Abd Dig Min) 25.78 2.37 Right Ulnar (Mrkrs) (Abd Dig Min) 28.15 2.37 EMG Side Muscle Nerve Root Ins Act Fibs Amp Dur Recrt Comment Right 1stDorInt Ulnar C8-T1 Nml Nml Nml Nml Nml Right Ext Indicis Radial (Post Int) C7-8 Nml Nml Nml Nml Nml Right Ext Digitorum Radial (Post Int) C7-8 Nml Nml Nml Nml Nml Right BrachioRad Radial C5-6 Nml Nml Nml Nml Nml Right PronatorTeres Median C6-7 Nml Nml Nml Nml Nml Right Abd Poll Brev Median C8-T1 Nml Nml Nml Nml Nml Right ABD Dig Min Ulnar C8-T1 Nml Nml Nml Nml Nml Left 1stDorInt Ulnar C8-T1 Nml Nml Nml Nml Nml Left Ext Indicis Radial (Post Int) C7-8 Nml Nml Nml Nml Nml Left Ext Digitorum Radial (Post Int) C7-8 Nml Nml Nml Nml Nml Left BrachioRad Radial C5-6 Nml Nml Nml Nml Nml Left PronatorTeres Median C6-7 Nml Nml Nml Nml Nml Left Abd Poll Brev Median C8-T1 Nml Nml Nml Nml Nml Left ABD Dig Min Ulnar C8-T1 Nml Nml Nml Nml Nml MTDD
== END 2023-11-07 08:24 | disposition home or self-care (01) ==
LOC: ANHNEURO 08:24
PROVIDERS: PCP Registered Nurse; Visit Provider Emergency Medicine
DX: R20.2 Paresthesia of skin (principal); G56.01 Carpal tunnel syndrome, right upper limb
CPT/HCPCS: 95886; 95911